=== PATIENT | male | born 1990 | race Two or more races ===

== ENCOUNTER 2019-05-29 14:29 | Emergency (ER) | payer SELFPAY ==
[~2019-05-29] VITALS: Ht 182.9 cm; Wt 127.0 kg
--- NOTE | 2019-05-29 14:40 | NUR ---
ED Nurse Note: Pt ambulated to ED d/t LT ankle pain with 8/10 pain scale. Per pt, he was at stairs on home when he slipped and twisted his ankle. Pt is AOx4, VSS. No past medical hx. placed on bed and lorene, will continue to monitor.
[2019-05-29] MEDS ORDERED: Ketorolac 60mg Inj IM ONE (15:00)
[2019-05-29] MEDS ORDERED: HYDROcodone/Acetamin 10/325 tab ORAL ONE (15:00)
--- NOTE | 2019-05-29 15:00 | NUR ---
ED Nurse Note: X-ray on bedside.
--- NOTE | 2019-05-29 16:09 | Diagnostic Imaging Report ---
Indication: left ankle pain Comparison: None Findings: 3 views of the left ankle obtained. No acute fracture, malalignment, periostitis, or osteochondral defects are identified. Mild periarticular tibiotalar osteophytes are demonstrated. Soft tissue swelling noted. Impression: No acute findings Osteoarthritis of the ankle
--- NOTE | 2019-05-29 16:10 | Diagnostic Imaging Report ---
Indication: Foot pain Comparison: None Findings: 3 views of the left foot were obtained. No acute fractures, malalignment, erosions or periostitis are identified. Soft tissues are unremarkable. Impression: No acute findings
[2019-05-29] MEDS ORDERED: IBUPROFEN600 MG ORAL (17:19)
--- NOTE | 2019-05-29 17:22 | Emergency Room Report ---
History of Present Illness General Chief Complaint: Lower Extremity Injury Source: Patient Present Illness HPI Patient presents with complaints of left ankle pain Reports that as he was going down the stairs he missed a step and twisted and fell onto his left ankle pain is 8 out of 10 denies any knee pain denies any pelvic pain Denies any head injury or lapse of consciousness Pain is worse with movement and touch Allergies: Coded Allergies: SULFA (SULFONAMIDE ANTIBIOTICS) (Unverified Allergy, Unknown, 05/29/19) Uncoded Allergies: SULFA (Allergy, Unknown, 05/29/19) Patient History Past Medical History: see triage record Reviewed Nursing Documentation: PMH: Agreed; PSxH: Agreed Nursing Documentation-PMH Past Medical History: No Stated History Review of Systems All Other Systems: negative except mentioned in HPI Physical Exam Vital Signs Date Time Temp Pulse Resp B/P (MAP) Pulse Ox O2 Delivery O2 Flow Rate FiO2 05/29/19 14:39 98.2 82 16 153/80 (104) 99 Room Air Sp02 EP Interpretation: reviewed, normal General Appearance: well appearing, no apparent distress Head: normocephalic, atraumatic Eyes: bilateral eye PERRL, bilateral eye EOMI ENT: EOM grossly intact Neck: supple Respiratory: normal breath sounds, no respiratory distress, no retraction Cardiovascular #1: regular rate, rhythm Gastrointestinal: non tender Musculoskeletal: swelling - Noted to the left ankle also dorsal foot sensory intact neurovascularly intact Neurologic: alert, oriented x3 Psychiatric: normal inspection Skin: other - Swelling as noted above Lymphatic: no adenopathy Procedures Splinting Splinting : Consent: Verbal Location: left ankle Pre-Made Type: velcro Splint: sugar-tong Pre-Proc Neuro Vasc Exam: normal Post-Proc Neuro Vasc Exam: normal Patient Tolerated: Well Complications: None Medical Decision Making Diagnostic Impression: Primary Impression: ankle sprain ER Course X-ray imaging does not show any obvious acute process Applied with crutches for nonweightbearing and requires close outpatient follow- up Other X-Ray Diagnostic Results Other X-Ray Diagnostic Results #1: X-Ray ordered: Left ankle # of Views/Limited Vs Complete: 3 View Indication: Pain EP Interpretation: Yes Interpretation: no dislocation, no fractures, other - Soft tissue swelling Impression: Other - Soft tissue swelling Electronically Signed by: Ricky Dunham, DO Other X-Ray Diagnostic Results #2: X-Ray ordered: Left foot # of Views/Limited Vs Complete: 2 View, 3 View Indication: Pain EP Interpretation: Yes Interpretation: no dislocation, no soft tissue swelling, no fractures Impression: No acute disease Electronically Signed by: Ricky Dunham DO Last Vital Signs Date Time Temp Pulse Resp B/P (MAP) Pulse Ox O2 Delivery O2 Flow Rate FiO2 05/29/19 15:35 98.3 05/29/19 14:39 82 16 153/80 (104) 99 Room Air Status: improved Disposition: HOME, SELF-CARE Condition: Improved Scripts Ibuprofen* (MOTRIN*) 600 Mg Tablet 600 MG ORAL Q8H PRN for For Pain, #20 TAB 0 Refills Prov: Ricky Dunham DO 05/29/19 Referrals: NOT CHOSEN IPA/,REFERRING (PCP) [facility] Patient Instructions: Ankle Sprain Additional Instructions: Patient is provided with the discharge instructions notified to follow up with primary doctor in the next 2-3 days otherwise return to the er with any worsening symptoms. Please note that this report is being documented using [employer] technology. This can lead to erroneous entry secondary to incorrect interpretation by the dictating instrument. Ricky Dunham DO May 29, 2019 17:22
[2019-05-29 17:33] VITALS: BP 153/80
--- NOTE | 2019-05-29 17:33 | NUR ---
ER DISCHARGE NOTE: Patient is cleared to be discharged per Dr. Dunham, pt is aox4, on room air, with stable vital signs. pt was given dc and prescription instructions, pt was able to verbalize understanding, pt id band removed. pt is able to ambulate with 2 crutches. Air splint applied on LT ankle assisted by JUDITH Baron. pt took all belongings.
== END 2019-05-29 17:33 | disposition home or self-care (01) ==
LOC: EMR 15:04
DX: S93.402A Sprain of unspecified ligament of left ankle, initial encounter (principal); W10.9XXA Fall (on) (from) unspecified stairs and steps, initial encounter; Y93.01 Activity, walking, marching and hiking; Y92.9 Unspecified place or not applicable; Z88.2 Allergy status to sulfonamides
CPT/HCPCS: 29515; 96372; 99284